=== PATIENT | female | born 1985 | race Caucasian/White ===

== ENCOUNTER → 2017-06-18 | Outpatient (CLI) | payer OTHER ==
--- NOTE | 2017-06-18 17:27 | VAS ---
HISTORY: Pain Study: Color flow and duplex Doppler studies were obtained of both lower extremities. Comparison: None TECHNIQUE: Multiple hebert scale and color flow Doppler images of the deep venous system were obtaine d of the right and left lower extremity. FINDINGS: The deep venous system of the right and left lower extremities were evaluated from the level of the common femoral vein through the popliteal vein. Normal color flow and augmentation can be observed. In addition, normal compression is seen throughout the deep venous system. IMPRESSION: No DVT seen in the lower extremities. Reported By:
== END ==
LOC: RAD 16:02
PROVIDERS: ATTEND Obstetrics & Gynecology Obstetrics
DX: R60.0 Localized edema (principal)
CPT/HCPCS: 93970